=== PATIENT | male | born 1975 | race Hispanic/Latino ===

== ENCOUNTER 2017-08-12 06:05 | Emergency (ER) | payer SELFPAY ==
[2017-08-12 07:02] LABS: Basophils % (Auto) 0.4 % (0.0-1.8); Eosinophils % (Auto) 0.4 % (0.0-4.3); Hematocrit 42.7 % (35.5-45.6); Hemoglobin 14.9 gm/dl (11.8-15.2); Mean Corpuscular HGB Conc 35 % (32-34); Mean Corpuscular Hemoglobin 30 pg (28-32); Mean Corpuscular Volume 85 fl (84-94); Platelet Count 163 K/mm3 (140-440); Red Blood Count 5.03 M/mm3 (3.65-5.03); Red Cell Distribution Width 14.2 % (13.2-15.2); White Blood Count 12.8 K/mm3 (4.5-11.0)
[2017-08-12 07:09] LABS: Alanine Aminotransferase 24 units/L (7-56); Albumin 3.9 g/dL (3.9-5); Albumin/Globulin Ratio 1.6 %; Alkaline Phosphatase 51 units/L (35-129); Anion Gap 17 mmol/L; BUN/Creatinine Ratio 12; Blood Urea Nitrogen 12 mg/dL (9-20); Calcium 8.3 mg/dL (8.4-10.2); Carbon Dioxide 27 mmol/L (22-30); Chloride 97.9 mmol/L (98-107); Glucose 200 mg/dL (75-100); Potassium 3.9 mmol/L (3.6-5.0); Sodium 138 mmol/L (137-145); Total Protein 6.4 g/dL (6.3-8.2)
--- NOTE | 2017-08-12 07:15 | Emergency Department Report ---
History of Present Illness - General Chief Complaint: Overdose Stated Complaint: POSSIBLE OD Time Seen by Provider: 08/12/17 07:08 Source: patient, EMS Mode of arrival: Stretcher Limitations: No Limitations - History of Present Illness Initial Comments: 6-year-old male who was brought in by ambulance after a possible heroin overdose. Patient states he thought he was doing methamphetamine but realizes that he might have been doing heroin instead. Someone called 911 and EMS gave him 2 mg of Narcan on arrival. He is currently A+O 3. He does answer questions but falls asleep after I stop talking to him. He denies other medical points at this time. Complaint: accidental overdose -: Sudden How Overdose Was Discovered: called 911 Context: Intentional Overdose: drug/ETOH problems Context: Accidental Overdose: wanted to get high - Related Data Allergies Allergy/AdvReac Type Severity Reaction Status Date / Time No Known Allergies Allergy Verified 08/12/17 06:22 ED Review of Systems ROS: Stated complaint: POSSIBLE OD Other details as noted in HPI Comment: All other systems reviewed and negative Constitutional: weakness. denies: diaphoresis Eyes: denies: vision change ENT: denies: dental pain Cardiovascular: denies: chest pain, palpitations Gastrointestinal: denies: abdominal pain, nausea Neurological: denies: headache, weakness, numbness, paresthesias ED Past Medical Hx - Past Medical History Previous Medical History?: Yes Additional medical history: ADHD - Surgical History Past Surgical History?: No - Family History Family history: no significant - Social History Smoking Status: Never Smoker Substance Use Type: Heroin, Methamphetamines ED Physical Exam - General Limitations: No Limitations General appearance: alert, in no apparent distress, other (somnolent) - Head Head exam: Present: atraumatic, normocephalic - Eye Eye exam: Present: normal appearance. Absent: scleral icterus, conjunctival injection - ENT ENT exam: Present: mucous membranes moist - Neck Neck exam: Present: normal inspection - Respiratory Respiratory exam: Present: normal lung sounds bilaterally. Absent: respiratory distress, wheezes - Cardiovascular Cardiovascular Exam: Present: regular rate, normal rhythm, normal heart sounds. Absent: systolic murmur, diastolic murmur, rubs, gallop - GI/Abdominal GI/Abdominal exam: Present: soft, normal bowel sounds. Absent: distended, tenderness - Rectal Rectal exam: Present: deferred - Extremities Exam Extremities exam: Present: normal inspection - Back Exam Back exam: Present: normal inspection - Neurological Exam Neurological exam: Present: alert, oriented X3 - Psychiatric Psychiatric exam: Present: normal affect, normal mood - Skin Skin exam: Present: warm, dry, intact, normal color. Absent: rash ED Course Vital Signs 08/12/17 08/12/17 08/12/17 06:08 06:16 06:30 Temperature 98.4 F Pulse Rate 97 H 89 92 H Respiratory 14 16 14 Rate Blood Pressure 131/84 129/88 O2 Sat by Pulse 89 97 98 Oximetry 08/12/17 08/12/17 08/12/17 06:46 07:00 07:16 Temperature Pulse Rate 88 93 H 84 Respiratory 14 14 14 Rate Blood Pressure 129/88 120/84 120/84 O2 Sat by Pulse 98 98 98 Oximetry 08/12/17 08/12/17 08/12/17 07:30 07:46 08:00 Temperature Pulse Rate 87 87 92 H Respiratory 14 12 12 Rate Blood Pressure 129/89 129/89 122/79 O2 Sat by Pulse 97 97 97 Oximetry 08/12/17 08/12/17 08/12/17 08:16 08:30 08:46 Temperature Pulse Rate 86 86 88 Respiratory 13 11 L 12 Rate Blood Pressure 122/79 115/70 115/70 O2 Sat by Pulse 97 97 96 Oximetry 08/12/17 08/12/17 08/12/17 09:00 09:16 09:30 Temperature Pulse Rate 85 88 88 Respiratory 11 L 22 21 Rate Blood Pressure 109/77 109/77 116/74 O2 Sat by Pulse 97 99 90 Oximetry 08/12/17 09:45 Temperature Pulse Rate Respiratory Rate Blood Pressure 116/74 O2 Sat by Pulse 74 L Oximetry ED Medical Decision Making - Lab Data Result diagrams: 08/12/17 06:39 08/12/17 06:39 Laboratory Results - last 24 hr 08/12/17 08/12/17 08/12/17 06:39 06:39 06:46 WBC 12.8 H RBC 5.03 Hgb 14.9 Hct 42.7 MCV 85 MCH 30 MCHC 35 H RDW 14.2 Plt Count 163 Lymph % (Auto) 15.5 Hardin % (Auto) 6.0 Eos % (Auto) 0.4 Baso % (Auto) 0.4 Lymph # 2.0 Hardin # 0.8 Eos # 0.0 Baso # 0.0 Seg Neutrophils % 77.7 H Seg Neutrophils # 9.9 H Sodium 138 Potassium 3.9 Chloride 97.9 L Carbon Dioxide 27 Anion Gap 17 BUN 12 Creatinine 1.0 Estimated GFR > 60 BUN/Creatinine Ratio 12 Glucose 200 H POC Glucose 183 H Calcium 8.3 L Magnesium 2.00 Total Bilirubin 0.80 AST 21 ALT 24 Alkaline Phosphatase 51 Total Protein 6.4 Albumin 3.9 Albumin/Globulin Ratio 1.6 - Medical Decision Making 42-year-old male presents emergency Department with likely overdose from heroin. Patient received 2 mg of Narcan from EMS and is now awake and alert. Plan to observe for several hours given required dose of Narcan. Patient was observed for approximately 2-1/2 hours. He eloped at some point. He was alert and oriented and his Narcan and clearly worn off at this point. I was planning to discharge the patient soon. Portions of this chart were dictated with dictation software. There may be dictation errors contained within this note. Critical care attestation.: If time is entered above; I have spent that time in minutes in the direct care of this critically ill patient, excluding procedure time. ED Disposition Clinical Impression: Heroin abuse Disposition: ELOPED Is pt being admited?: No Condition: Stable Referrals: PRIMARY CARE, [Primary Care Provider] - 3-5 Days
[2017-08-12] MEDS ORDERED: ZOFRAN ONE (07:26)
[2017-08-12] MEDS ORDERED: NACL 0.9% 1000 ML 1,000 ML IV ONE (07:47)
[2017-08-12] MEDS ORDERED: ZOFRAN IV ONE (07:47)
[2017-08-12 10:00] LABS: Urine Drugs of Abuse Note Disclamer
[2017-08-12 10:09] VITALS: BP 116/74
[2017-08-12 10:18] LABS: Bilirubin,Urine NEG (Negative); Blood,Urine NEG (Negative); Ketones,Urine NEG (Negative); Leukocyte Esterase,Urine NEG (Negative); Mucus,Urine 3+ /HPF; Nitrite,Urine NEG (Negative); Urobilinogen,Urine < 2.0 mg/dL (<2.0)
== END 2017-08-12 10:30 | disposition left against medical advice (07) ==
LOC: ED 06:05
DX: F11.10 Opioid abuse, uncomplicated (principal); F15.10 Other stimulant abuse, uncomplicated
CPT/HCPCS: 36415; 80053; 80307; 81001; 82140; 82962; 83735; 84443; 85025; 93005; 93010; 96361; 96374; 99284; G0480; J2405; J7030; 80320